=== PATIENT | female | born 1980 | race Caucasian/White ===

== ENCOUNTER → 2017-03-20 | Outpatient (CLI) | payer BC ==
[~2017-03-20] MED LIST: CITALOPRAM40 MG PO; FLUTICASON0.05 MG/AC NS; OMEPRAZOLE40 MG PO; TIROSINT75 MC1 PO; TRIAMCINOLONE A15 GM TP
== END ==
LOC: LAB 18:31
DX: R30.0 Dysuria (principal)

== ENCOUNTER → 2017-04-05 | Outpatient (CLI) | payer BC ==
[~2017-04-05] VITALS: Ht 177.8 cm; Wt 84.5 kg
[2017-04-05 08:30] VITALS: BP 117/72
[2017-04-05 08:36] VITALS: BP 119/87
[2017-04-05 09:00] VITALS: BP 115/81
[2017-04-05 09:30] VITALS: BP 136/88
[2017-04-05 10:00] VITALS: BP 109/73
[2017-04-05 10:30] VITALS: BP 113/71
== END ==
LOC: AMSURD 07:40
DX: G43.909 Migraine, unspecified, not intractable, without status migrainosus (principal)
CPT/HCPCS: J1885; J2765; J7030

== ENCOUNTER → 2017-06-07 | Outpatient (CLI) | payer BC ==
[2017-04-05 10:30] VITALS: BP 113/71
== END ==
LOC: LAB 15:02
DX: R53.81 Other malaise (principal)

== ENCOUNTER → 2017-07-19 | Outpatient (CLI) | payer BC ==
[2017-04-05 10:30] VITALS: BP 113/71
== END ==
LOC: RAD 08:03
DX: M25.511 Pain in right shoulder (principal)

== ENCOUNTER → 2017-09-06 | Outpatient (CLI) | payer OTHER ==
[~2017-09-06] VITALS: Ht 177.8 cm; Wt 84.5 kg
[~2017-09-06] MED LIST changes: +HYDROXYZINE HYD50 M1 PO; +KLONOPIN 1MG1 MG PO; +LAMOTRIGINE25 M1 PO; +NORCO 325 MG-51 TA1 PO; +VENLAFAXINE225 MG PO
[2017-09-06 12:28] VITALS: BP 126/76
[2017-09-06 15:27] VITALS: BP 132/88
== END ==
LOC: AMSURD 11:56
DX: G43.909 Migraine, unspecified, not intractable, without status migrainosus (principal); E86.0 Dehydration
CPT/HCPCS: J1100; J1885; J2405; J2550; J3490; J7030

== ENCOUNTER → 2017-10-31 | Outpatient (CLI) | payer OTHER ==
[2017-09-06 15:27] VITALS: BP 132/88
[2017-10-31 11:45] LABS: HEMATOCRIT 42.1 % (37.0-47.0); HEMOGLOBIN 13.4 g/dL (12.5-16.0); MEAN CELL VOLUME 95 fl (78-100); MEAN CORPUSCULAR HEMOGLOBIN 30 pg (27-31); MEAN CORPUSCULAR HGB CONC 32 g/dL (33-37); MEAN PLATELET VOLUME 9.5 fl (7.4-10.4); PLATELET COUNT 296 K/mm3 (130-400); RED BLOOD COUNT 4.42 M/mm3 (4.10-5.30); RED CELL DISTRIBUTION WIDTH 12.9 % (11.5-14.5); WHITE BLOOD COUNT 6.2 K/mm3 (4.8-10.8)
[2017-10-31 11:55] LABS: LYMPHOCYTE 38 % (20-51); MONOCYTE 3 % (3-10); NEUTROPHILS 58 % (42-75)
== END ==
LOC: RAD 11:24
PROVIDERS: Nurse Practitioner Family
DX: N92.1 Excessive and frequent menstruation with irregular cycle (principal)

== ENCOUNTER 2018-02-15 11:30 | Outpatient (RCR) | payer OTHER ==
[2017-09-06 15:27] VITALS: BP 132/88
== END 2018-02-15 12:00 | disposition home or self-care (01) ==
LOC: PT
DX: Z47.89 Encounter for other orthopedic aftercare (principal)
CPT/HCPCS: G0283-GP

== ENCOUNTER → 2018-06-05 | Outpatient (CLI) | payer OTHER ==
[2017-09-06 15:27] VITALS: BP 132/88
[2018-06-05 19:05] LABS: ALBUMIN 4.3 g/dL (3.5-5.0); CALCIUM 9.4 mg/dL (8.4-10.2); POTASSIUM 4.1 mmol/L (3.6-5.0); TOTAL BILIRUBIN 0.4 mg/dL (0.2-1.3)
[2018-06-05 20:58] LABS: HEMATOCRIT 40.4 % (37.0-47.0); MEAN CELL VOLUME 95 fl (78-100); MEAN CORPUSCULAR HEMOGLOBIN 30 pg (27-31); MEAN CORPUSCULAR HGB CONC 32 g/dL (33-37); MEAN PLATELET VOLUME 10.4 fl (7.4-10.4); PLATELET COUNT 285 K/mm3 (130-400); RED BLOOD COUNT 4.27 M/mm3 (4.10-5.30); RED CELL DISTRIBUTION WIDTH 12.2 % (11.5-14.5); WHITE BLOOD COUNT 6.5 K/mm3 (4.8-10.8)
[2018-06-06 01:58] LABS: LYMPHOCYTE 38 % (20-51); MONOCYTE 12 % (3-10); NEUTROPHILS 48 % (42-75)
== END ==
LOC: LAB 16:57
PROVIDERS: Family Medicine
DX: M54.2 Cervicalgia (principal)